=== PATIENT | male | born 1995 | race Caucasian/White ===

== ENCOUNTER 2020-07-13 06:39 | Emergency (ER) | payer OTHER ==
[~2020-07-13] VITALS: Ht 172.7 cm; Wt 90.8 kg
[2020-07-13 06:40] VITALS: BP 138/71
[2020-07-13] MEDS ORDERED: LIDO5CRE6 TOP (06:47)
--- NOTE | 2020-07-16 12:37 | ED PDOC ---
Post-Departure Follow-Up provider called patient to update on negative COVID-19 test. Advised to update l hussainhip of negative result.NINI FRANCOIS TAYLOR E. PA-C Jul 16, 2020 12:37
== END 2020-07-13 07:44 | disposition home or self-care (01) ==
LOC: M ED 06:39
DX: J02.9 Acute pharyngitis, unspecified (principal); J06.9 Acute upper respiratory infection, unspecified
CPT/HCPCS: 87880; 99283; U0003